=== PATIENT | male | born 1990 | race Caucasian/White ===

== ENCOUNTER → 2020-11-10 07:54 | Outpatient (CLI) | payer BC, SELFPAY ==
--- NOTE | ~2020-11-10 | XR_ITS ---
XR lumbar spine 2-3V DATE: 11/10/2020 08:24 INDICATION: Low back pain TECHNIQUE: Standing AP, lateral and coned lateral lumbosacral views COMPARISON: None FINDINGS: There are 4 functional lumbar vertebra. No fracture or bone destruction is evident. The included lower thoracic and lumbar pedicles are intac t. Lumbar interspaces appear relatively preserved. The sacroiliac joints are intact. IMPRESSION: 4 functional lumbar vertebrae Reviewed, dictated and finalized at location A.
== END ==
PROVIDERS: PCP Nurse Practitioner Family; Visit Provider Nurse Practitioner Family
DX: M54.5 Low back pain (principal)
CPT/HCPCS: 72100

== ENCOUNTER 2024-03-03 06:57 | Emergency (ER) | payer OTHER, SELFPAY ==
--- NOTE | ~2024-03-03 | CT_ITS ---
EXAMINATION: CT abdomen pelvis wo con DATE: 03/03/2024 09:00 INDICATION: Left flank pain. TECHNIQUE: Computed tomography (CT) of the abdomen and pelvis was performed without intravenous contr ast. Automated exposure control and iterative reconstruction technique were employed. The dose-length product was 981.04 mGy-cm. COMPARISON: Abdomen radiographs 03/03/2024 FINDINGS: The visualized portions of the lung bases demonstrate mild atelectasis. No pleural effusion . The heart size is normal. No pericardial effusion. There is diffuse hepatic steatosis. The gallblad odalis, spleen, pancreas, and adrenal glands are normal. There are approximately 8 stones in right kidne y measuring up to 4 mm. There is mild right hydronephrosis and hydroureter. There is a 4 mm stone in the bladder. There are approximately 6 stones in left kidney measuring up to 4 mm. There are no dilat ed loops of bowel. The appendix is normal. There are no pathologically enlarged lymph nodes. There is no free intraperitoneal fluid. There are chronic bilateral L5 pars defects. There is 5 mm anterolist hesis of L5 on S1. There is moderate lumbar spondylosis. IMPRESSION: 1. Mild right hydronephrosis and hydroureter, likely secondary to recent passage of the 4 mm bladder stone. 2. Bilateral nonobstructing kidney stones. Reviewed, dictated and finalized at location A. TY SHERIFF BUILDING GUARD IMPRESSION: 1. Mild right hydronephrosis and hydroureter, likely secondary to recent passag e of the 4 mm bladder stone. 2. Bilateral nonobstructing kidney stones.
--- NOTE | ~2024-03-03 | XR_ITS ---
XR abdomen/kub 1V Ordering provider: Ryan Fraser MD History: . 4 mm right sided kidney stone on outside imaging . Comparison: None. FINDINGS: BOWEL: Nonobstructive bowel gas pattern. ORGANOMEGALY: None. SIGNIFICANT PATHOLOGIC CALCIFICATIONS: Multiple tiny stones are seen in the left kidney lower pole. T iny stones seen in the right kidney midpole. No ureteric stones. OTHER: No free air is seen under the diaphragm. IMPRESSION: NO ACUTE ABDOMINAL FINDINGS. Bilateral kidney stones. Reviewed, dictated and finalized at location A. ING MACHINE OPERATOR HELPER
[2024-03-03 07:11] VITALS: BP 161/88; PULSE 78; RESP 16; TEMP 36.4; O2SAT 98
--- NOTE | 2024-03-03 07:29 | ED.GENADULT ---
HPI - General Adult General Chief complaint: Abdominal Pain Stated complaint: I have a kidney stone Time Seen by Provider: 03/03/24 07:08 History of Present Illness HPI narrative: 34-year-old male with history of ureteral calculi presented to the emergency department for evaluation for pain secondary to a 4 mm calculi in his left ureter. Patient states he began developing pain without Saturday did present to the [place] [facility]. At that time patient had a CT scan showing a 4 mm left-sided ureteral calculi. Patient was discharged home with Flomax, [place], Zofran, Toradol and was instructed to have close follow-up. Patient states on Saturday night his symptoms worsened and his pain was not controlled. Patient did return back to [place] [facility] but since they had no urologist on staff patient states he was discharged to home. Patient states after returning home last night he had worsening symptoms so he presented to our emergency department for evaluation. Patient is supposed to have follow-up with Jackie on Saturday. Related Data Allergies Allergy/AdvReac Type Severity Reaction Status Date / Time No Known Allergies Allergy Verified 03/03/24 07:52 Review of Systems Review of Systems: All systems reviewed & are unremarkable except as noted in HPI and below Exam Narrative: APPEARANCE: uncomfortable appearing HEAD: normocephalic, atraumatic. EYES: PERRLA/EOMI, conjunctivae clear. NOSE: Normal no drainage EARS:TMS clear with good light reflex. THROAT: Pharynx clear, no exudate. NECK: Supple. No adenopathy, no masses. RESPIRATORY: Airway patent, respirations nonlabored. Clear to auscultation bilaterally, no rales, rhonchi, wheezing. CARDIOVASCULAR: Regular rate and rhythm without murmurs rubs or gallops. ABDOMINAL: Soft, nontender, nondistended, normal bowel sounds MUSCULOSKELETAL: Moves all extremities. Strength/ROM intact, No edema, No calf tenderness. NEURO: Alert. Cranial nerves II through XII intact. grossly intact SKIN: Warm, dry. Normal Color Course Course Emergency Course: Patient was discharged home with instructions to have close follow-up with Urology as outpatient. Vital Signs Vital signs: Vital Signs Temperature 97.6 F 03/03/24 07:11 Pulse Rate 78 03/03/24 07:11 Respiratory Rate 16 03/03/24 07:11 Blood Pressure 161/88 H 03/03/24 07:11 Pulse Oximetry 98 03/03/24 07:11 Temperature 98.0 F 03/03/24 08:37 Pulse Rate 76 03/03/24 09:32 Respiratory Rate 16 03/03/24 09:32 Blood Pressure 114/76 03/03/24 09:32 Pulse Oximetry 100 03/03/24 09:32 Medical Decision Making MDM Narrative Medical decision making narrative: 34-year-old male presents emergency department for evaluation for uncontrolled pain. KUB was ordered to visualize the 4 mm ureteral calculi and this was not seen on the x-ray. I discussed the case with Urology and he did not want to take the patient to the OR without an updated CT scan. CT scan does show that the 4 mm left-sided ureteral calculi has now passed into the bladder. On re-evaluation patient states he does feel significantly improved. Patient is resting comfortably. Patient did require multiple doses of IV Dilaudid for pain control. But once the stone passed into the bladder patient's pain was significantly improved. Differential Diagnosis Differential Diagnosis: Ureteral calculi, ureteral spasm, UTI Vital Signs Vital Signs: Vital Signs Temperature 97.6 F 03/03/24 07:11 Pulse Rate 78 03/03/24 07:11 Respiratory Rate 16 03/03/24 07:11 Blood Pressure 161/88 H 03/03/24 07:11 Pulse Oximetry 98 03/03/24 07:11 Temperature 98.0 F 03/03/24 08:37 Pulse Rate 76 03/03/24 09:32 Respiratory Rate 16 03/03/24 09:32 Blood Pressure 114/76 03/03/24 09:32 Pulse Oximetry 100 03/03/24 09:32 Lab Data Lab results reviewed: Yes I reviewed the patient's lab results. 03/03/24 07:30 03/03/24 07:26 Labs: Lab Results 03/03/24 03/03/24 Range/Units 07:26 07:30 WBC 7.2 (4.5-10.0) K/mm3 RBC 4.99 (4.6-6.20) M/mm3 Hgb 14.6 (14.0-18.0) g/dL Hct 43.8 (42.0-52.0) % MCV 87.8 (80-100) fl MCH 29.3 (26-34) pg MCHC 33.3 (32-36) g/dl RDW 12.9 (11.5-14.5) % Plt Count 207 (150-375) k/mm3 MPV 10.8 H (7.4-10.4) fl Immature Gran % (Auto) 0.3 (0-0.5) % Neut % (Auto) 63.9 (45.5-73.1) % Lymph % (Auto) 24.9 (18.3-44.2) % [place] % (Auto) 9.9 H (2.6-8.5) % Eos % (Auto) 0.7 (0-4.4) % Baso % (Auto) 0.3 (0.2-1.2) % Lymph # (Auto) 1.79 (0.9-3.2) K/mm3 [place] # (Auto) 0.7 H (0.1-0.6) K/mm3 Eos # (Auto) 0.1 (0-0.3) K/mm3 Baso # (Auto) 0.0 (0.0-0.1) K/mm3 Abs Immat Gran (auto) 0.02 (0.00-0.031) K/mm3 Absolute Neuts (auto) 4.6 (1.3-6.7) K/mm3 Absolute Nucleated RBC 0.000 (0.0-0.012) K/mm3 Nucleated RBC % 0.0 (0.0-0.2) % Sodium 140 (137-145) mmol/L Potassium 4.5 (3.4-5.0) mmol/L Chloride 102 (98-107) mmol/L Carbon Dioxide 28 (22-30) mmol/L Anion Gap 10 (4-12) mmol/L BUN 13 (9-20) mg/dL Creatinine 1.20 (0.7-1.3) mg/dL Estim Creat Clear Calc 102 ml/min Estimated GFR > 60 (59 - ) Glucose 94 (65-110) mg/dL Calcium 9.0 (8.4-10.2) mg/dL Total Bilirubin 0.7 (0.2-1.3) mg/dL AST 37 (17-59) U/L ALT 59 H (6-50) U/L Alkaline Phosphatase 52 (38-126) U/L Total Protein 8.0 (6.3-8.2) g/dL Albumin 4.5 (3.5-5.1) g/dL Urine Color Yellow (Yellow) Urine Appearance Clear (Clear) Urine pH 6.5 (5.0-9.0) Ur Specific [place] 1.014 (1.001-1.035) Urine Protein Negative (Negative) mg/dL Urine Glucose (UA) Negative (Negative) mg/dL Urine Ketones Negative (Negative) mg/dL Ur Blood (Man) 1+ H (Negative) Urine Nitrate Negative (Negative) Urine Bilirubin Negative (Negative) Urine Urobilinogen 0.2 (<2.0) mg/dL Leukocyte Esterase Rfl Negative (Negative) VAL/UL Urine RBC 11-20 H (0-2) /hpf Urine WBC 0-5 (0-3) /hpf Ur Squamous Epith Cells None seen (Few) /hpf Urine Bacteria None seen /hpf Urine Casts 0-2 Imaging Data Radiologist's impression: Impressions Abdomen X-Ray 03/03/24 08:08 IMPRESSION: NO ACUTE ABDOMINAL FINDINGS. Bilateral kidney stones. Abdomen/Pelvis CT 03/03/24 09:01 IMPRESSION: 1. Mild right hydronephrosis and hydroureter, likely secondary to recent passage of the 4 mm bladder stone. 2. Bilateral nonobstructing kidney stones. Discharge Plan Discharge Clinical Impression: Bladder calculi Patient Disposition: Home, Self-Care Condition: Stable Instructions: Antibiotic Form, Kidney Stones (ED), How to Strain Your Urine (ED), Flank Pain (ED) Additional Instructions: Continue to strain your urine as instructed. Have close follow-up with Urology as scheduled. Home medications for pain control as needed. Follow-up/Referrals: Stone,Aline Ritter, SHIP LO[employer]ER-BC [Primary Care Provider] -
[2024-03-03] MEDS: ONDANSETRON INJ 4 MG/2 ML VIAL IV PUSH (07:33)
[2024-03-03] MEDS: HYDROmorphone HCL INJ (*CRX) 1 MG/ML SYR IV PUSH ×2 (07:33→08:17)
[2024-03-03 07:42] VITALS: BP 132/86; PULSE 72; RESP 16; O2SAT 97
[2024-03-03 07:46] LABS: Basophils Percent Auto 0.3 % (0.2-1.2); Eosinophils Absolute Auto 0.1 K/mm3 (0-0.3); Eosinophils Percent Auto 0.7 % (0-4.4); Hematocrit 43.8 % (42.0-52.0); Hemoglobin 14.6 g/dL (14.0-18.0); Immature Granulocyte Absolute 0.02 K/mm3 (0.00-0.031); Immature Granulocyte Percent A 0.3 % (0-0.5); Lymphocytes Absolute Auto 1.79 K/mm3 (0.9-3.2); Lymphocytes Percent Auto 24.9 % (18.3-44.2); Mean Corpuscular HGB Conc 33.3 g/dl (32-36); Mean Corpuscular Hemoglobin 29.3 pg (26-34); Mean Corpuscular Volume 87.8 fl (80-100); Mean Platelet Volume 10.8 fl (7.4-10.4); Monocytes Absolute Auto 0.7 K/mm3 (0.1-0.6); Monocytes Percent Auto 9.9 % (2.6-8.5); Neutrophils Absolute Auto 4.6 K/mm3 (1.3-6.7); Neutrophils Percent Auto 63.9 % (45.5-73.1); Platelet Count Result 207 k/mm3 (150-375); Red Blood Count 4.99 M/mm3 (4.6-6.20); Red Cell Distribution Width 12.9 % (11.5-14.5); White Blood Count 7.2 K/mm3 (4.5-10.0)
[2024-03-03 07:47] LABS: Add Urine Microscopic? YES; Appearance Urine Clear (Clear); Bacteria Urine None Seen /hpf; Bilirubin Urine Negative (Negative); Blood Urine 1+ (Negative); Color Urine Yellow (Yellow); Glucose Urine UA Negative (Negative); Ketones Urine Negative (Negative); Leukocyte Esterase Ur Negative LEU/UL (Negative); Nitrate Urine Negative (Negative); Non Pathogenic Casts 0-2; Protein Urine Negative (Negative); Specific Grav Ur 1.014 (1.001-1.035); Squamous Epithelial Cell Urine None Seen /hpf (Few); Urobilinogen Urine 0.2 mg/dL (<2.0); WBC Urine 0-5 /hpf (0-3); pH Urine 6.5 (5.0-9.0)
[2024-03-03 07:49] LABS: Alanine Aminotransferase 59 U/L (6-50); Albumin Level 4.5 g/dL (3.5-5.1); Alkaline Phosphatase 52 U/L (38-126); Anion Gap 10 mmol/L (4-12); Aspartate Amino Transferase 37 U/L (17-59); Bilirubin,Total 0.7 mg/dL (0.2-1.3); Blood Urea Nitrogen 13 mg/dL (9-20); Carbon Dioxide 28 mmol/L (22-30); Chloride 102 mmol/L (98-107); Estimated CRCL calculation 102 ml/min; Estimated Glomerular Filt Rate > 60; Glucose 94 mg/dL (65-110); Potassium 4.5 mmol/L (3.4-5.0); Sodium 140 mmol/L (137-145)
--- NOTE | 2024-03-03 08:20 | PC.NURSE ---
Pt pain remains 7.Dr. Fraser informed,order received.
[2024-03-03 08:37] VITALS: BP 144/61; PULSE 77; RESP 18; TEMP 36.7; O2SAT 97
[2024-03-03 09:32] VITALS: BP 114/76; PULSE 76; RESP 16; O2SAT 100
== END 2024-03-03 09:34 | disposition home or self-care (01) ==
PROVIDERS: Emergency Provider Emergency Medicine; PCP Nurse Practitioner Family
DX: N21.0 Calculus in bladder (principal)
CPT/HCPCS: 36415; 74018; 74176; 80053; 81001; 85025; 96374; 96375; 96376; 99284; J1171; J2405

== ENCOUNTER 2024-04-03 10:13 | Outpatient (CLI) | payer OTHER, SELFPAY ==
--- NOTE | ~2024-04-03 | XR_ITS ---
XR abdomen/kub 1V 04/03/2024 10:28 Indication: Recent lithotripsy. Renal stones. Procedure: KUB Comparison: 03/03/2024 Findings: There are multiple left renal stones. Bowel gas pattern nonobstructive. There are pelvic ph leboliths. No acute osseous abnormality. Impression: 1: Left nephrolithiasis. Reviewed, dictated and finalized at location B. RIOR COURT CLERK Impression: 1: Left nephrolithiasis.
== END 2024-04-03 10:14 | disposition home or self-care (01) ==
PROVIDERS: PCP Nurse Practitioner Family; Visit Provider Urology
DX: N20.0 Calculus of kidney (principal)
CPT/HCPCS: 74018

== ENCOUNTER 2024-05-22 07:08 | Outpatient (CLI) | payer OTHER, SELFPAY ==
--- NOTE | ~2024-05-22 | XR_ITS ---
EXAMINATION: XR abdomen/kub 1V DATE: 05/22/2024 07:22 INDICATION: Calcium kidney stone status post lithotripsy on the left. TECHNIQUE: A supine view of the abdomen on 2 radiographs was obtained. COMPARISON: Abdomen radiographs 04/03/2024, CT abdomen and pelvis 03/03/2024 FINDINGS: There are approximately 3 stones in right kidney measuring up to 2 mm. There are two 3 mm s tones in left kidney. There are no dilated loops of bowel. There are phleboliths in the pelvis. IMPRESSION: 1. Small bilateral kidney stones. Reviewed, dictated and finalized at location A. LITIES AND GROUNDS DIRECTOR
--- OUTSIDE RECORDS SUMMARY | 2024-05-22 07:12 | XMS_ITS | Clinical Summary ---
Author Organization [facility] Address [address] [place] [address]. [place], [place] [address] [place] [id number] Care Team Providers Care Computer Discovery Teacher Name Role Phone Aline Nobles [facility] Primary Care Provider [phone] Allergies No known active allergies Medications tamsulosin 0.4 MG CapIndications:N ephrolithiasis Take 1 capsule (0.4 mg total) by mouth daily. 15 capsule 1 Active cefdinir 300 MG Cap capsuleIndicatio ns:Upper respiratory tract infection, unspecified type Take 1 capsule (300 mg total) by mouth 2 (two) times daily. 20 capsule 1 Active AZELASTINE 137 MCG/SPRAY nasal spray INSTILL 2 SPRAYS TWICE DAILY DIRECTED 1 Active fluticasone propionate 50 MCG/ACT nasal spray INSTILL 1 SPRAY INTO EACH NOSTRIL ONCE DAILY. 1 Active amoxicillin 500 MG capsule TAKE 1 CAPSULE BY MOUTH THREE TIMES DAILY UNTIL ALL TAKEN 1 Active tiZANidine 2 MG tablet TAKE 1 TABLET BY MOUTH FOUR TIMES DAILY UNTIL ALL TAKEN 1 Active HYDROcodone-acet aminophen (NORCO) 5-325 MG tabletIndication s:Acute Pain < 7 Day Supply Take 1 tablet by mouth every 6 (six) hours as needed for Pain. Indications: Acute Pain < 7 Day Supply 20 tablet 4 Active ondansetron (ZOFRAN) 4 MG tablet Take 1 tablet (4 mg total) by mouth every 8 (eight) hours as needed for Nausea. 16 tablet 4 Active Active Problems Problem Noted Date Diagnosed Date Nephrolithiasis 05/28/2018 Kidney stone on left side 09/03/2017 BMI 36.0-36.9,adult 05/28/2017 Obesity Resolved Problems Problem Noted Date Diagnosed Date Resolved Date Screening for heart disease 05/28/2017 01/01/2020 Screening for colon cancer 05/28/2017 0 01/01/2020 Screening for diabetes mellitus (DM) 05/28/2017 01/01/2020 Screening for cholesterol level 05/28/2017 01/01/2020 Encounter for preventive health examination 05/17/2017 01/01/2020 Encounters Date Type Department Care Team Description 03/03/2024 12:23 AM [facility] - 03/03/2024 5:37 AM [facility] Emergency [facility] Emergency Room [address] [place] [id number] Sukumar Long MD Back Pain (Right side) Discharge Disposition: Home or Self Care (Routine Discharge) 03/03/2024 Travel 03/01/2024 12:56 AM [facility] - 03/01/2024 3:00 AM [facility] Emergency [facility] Emergency Room [address] [place] [id number] Marv Denise DO Abdominal Pain Discharge Disposition: Home or Self Care (Routine Discharge) 03/01/2024 Travel from Last 3 Months Immunizations Name Administration Dates Next Due Dtap 08/18/1994, 1,1989,05/23,1989 Flucelvax 2 YRS+ (Multi-Dose Vial) 02/03/2019 Fluzone 6 Months+ Quad (0.5 mL Prefilled Syringe) 02/29/2020 Hepatitis A (Generic) 09/01/2007 Hepatitis B 08/24/1999,10/21/1998,07/29/1998 Hib (Generic) 09/02/1990 MMR 08/18/1994,09/02/1990 Meningococcal (Generic) 09/01/2007 PFIZER COVID-19 (ORIGINAL FO RMULATION, PURPLE CAP) mRNA, LNP-S, PF, 30 MCG/0.3 ML DOSE 05/31/2020 Polio Ipv (Generic) 08/18/1994, 1,1989,05/23,1989 Tdap (Boostrix) 11/28/2018 Tdap (Generic) 09/01/2007 Tetanus/Diptheria 11/13/2003 Family History Medical History Relation Comments stomach cancer Father Clotting Disorder Mother Factor V Multiple Sclerosis Mother None Mother Relation Status Comments Father Mother Social History Tobacco Use Types Packs/Day Years Used Date Smoking Tobacco: Never Smokeless Tobacco: Never Alcohol Use Standard Drinks/Week Comments No 0 (1 standard drink = 0.6 oz pur e alcohol) PHQ-2 Answer Date Recorded PHQ-2 Score - If the patient scores above 3, please move on to questions 3-9 0 09/05/2020 Sex and Gender Information Value Date Recorded Sex Assigned at Not on file Legal Sex Male 10:30 AM CDT Gender Identity Not on file Sexual Orientation Not on file Last Filed Vital Signs Vital Sign Reading Time Taken Comments Blood Pressure 112/62 03/03/2024 3:30 AM [facility] Pulse 76 03/03/2024 3:30 AM [facility] Temperature 36.8 ??C (98.2 ??F) 03/03/2024 12:[address] Respiratory Rate 16 03/03/2024 3:30 AM [facility] Oxygen Saturation 94% 03/03/2024 3:30 AM [facility] Inhaled Oxygen Concentration - - Weight 100.2 kg (221 lb) 03/03/2024 12:30 AM [facility] Height 182.9 cm (6') 03/03/2024 12:30 AM [facility] Body Mass Index 29.97 03/03/2024 12:30 AM [facility] Plan of Treatment Health Maintenance Due Date Last Done Comments Hepatitis C 2007 Annual Physical 07/27/2021 07/27/2020, 06/17/2018 COVID-19 Vaccine ( season) 2023 05/31/2020 Influenza Adult (#1) 2024 02/29/2020, 02/04/20 19 DTaP, Tdap and Td Vaccines (8 - Td or Tdap) 11/28/2028 11/28/2018, 09/01/2007, 11/13/2003, Additional history exists Hepatitis B Vaccines Completed 08/24/1999, 10/21/1998, 07/29/1998 Meningococcal Vaccine Aged Out 09/01/2007 No osmar odell eligible based on patient's age to complete this topic HPV Vaccines Aged Out No longer eligi ble based on patient's age to complete this topic Meningococcal B Vaccine Aged Out No l onger eligible based on patient's age to complete this topic Pneumococcal Vaccine: Pediatrics (0 to 5 Years) and At-Risk Patients (6 to 64 Years) Aged Out No longer eligible based on patient's age to complete this topic RSV Immunizations Under 20 Months Aged Out No longer eligible based on patient's age to complete this topic Medical Devices Implanted Type Area Gamer Device Identifier Shelf Expiration Date Model / Serial / Lot Stent Inlay [place] 6 X 28 Implanted:Qty: 1 on 09/13/2017 by Gato Holliday MD at [facility] Left: Ureter [id number] / / [id number] Procedures Procedure Name Priority Date/Time Associated Diagnosis Comments URINALYSIS, AUTO, COMPLETE STAT 03/03/2024 4:[address] ABD+PEL WO CON STAT 03/03/2024 1:0 7 AM [facility] COMPREHENSIVE METABOLIC PANEL STAT 03/03/2024 12:35 AM [facility] CBC W/DIFF AUTOMATED STAT 03/03/2024 12:35 AM [facility] URINALYSIS, AUTO, COMPLETE STAT 03/01/2024 1:[address] ABD+PEL KIDNEY STONE STAT 03/01/2024 1:31 AM [facility] COMPREHENSIVE METABOLIC PANEL STAT 03/01/2024 1:18 AM [facility] CBC W/DIFF AUTOMATED STAT 03/01/2024 1:18 AM [facility] from Last 3 Months Results * (ABNORMAL) URINALYSIS, AUTO, COMPLETE (03/03/2024 4:04 AM [facility]) Only the most recent of2 resultswithin the time period is included. COLOR (U) YELLOW 03/03/2024 4:42 AM [facility] TRANSPARENCY HAZY 03/03/2024 4:42 AM [facility] SPECIFIC GRAVITY (U) 1.025 1.000 - 1.030 03/03/2024 4:42 AM [facility] U PH 6.0 5.0 - 9.0 03/03/2024 4:42 AM [facility] LEUKOCYTES (U) NEGATIVE NEGATIVE 03/03/2024 4:42 AM [facility] NITRITES NEGATIVE NEGATIVE 03/03/2024 4:42 AM [facility] PROTEIN RANDOM (U) NEGATIVE NEGATIVE 03/03/2024 4:42 AM [facility] GLUCOSE (U) NEGATIVE NEGATIVE 03/03/2024 4:42 AM [facility] KETONES MG/DL (U) NEGATIVE NEGATIVE 03/03/2024 4:42 AM [facility] BILIRUBIN (U) NEGATIVE NEGATIVE 03/03/2024 4:42 AM [facility] BLOOD (U) 3+(A) NEGATIVE 03/03/2024 4:42 AM [facility] WBC/HPF 5-10 0 - 5 /HPF 03/03/2024 4:42 AM [facility] RBC/HPF 25-50 0 - 5 /HPF 03/03/2024 4:42 AM [facility] EPI/HPF FEW /HPF 03/03/2024 4:42 AM [facility] BACTERIA (U) MODERATE /HPF 03/03/2024 4:42 AM [facility] URINE SPECIMEN OBTAINED BY CLEAN CATCH PROCEDURE / Unknown 03/03/2024 4:04 AM [facility] us Sukumar Long MD URINE ORDERABLES Final Res ult [facility] [address] [place] [address], [place] [phone] * CT ABD+PEL WO CON (03/03/2024 1:07 AM [facility]) Anatomical Region Laterality Modality Abdomen Computed Tomogra phy 03/03/2024 2:41 AM [facility] Impressions 03/03/2024 2:48 AM [facility] Impression: 1. ??A 4 mm stone is redemonstrated within the distal right ureter, further along the ureter since the prior study. Persistent mild right hydronephrosis and renal edema. 2. ??Additional nonobstructing bilateral renal stones again noted. 3. ??Left L5 pars defect with slight grade 1 anterolisthesis of L5 on S1. Slight retrolisthesis of L4 on L5. Referred By: ?? Interpreted By: Benjamin Joshi MD, 03/03/2024 2:41 AM Narrative 03/03/2024 2:48 AM [facility] [address] [facility] [place] [address] Examination: CT abdomen and pelvis without IV contrast. Clinical Information: Right flank pain. History of kidney stone. Comparison: CT 03/01/2024. Technique: IV contrast: None Oral contrast: None. Technical comments: Standard technique. Dose reduction: This CT exam was performed using one or more of the following dose reduction techniques: Automated exposure control, adjustment of the mA and/or kV according to patient size, and/or use of iterative reconstruction technique. Findings: LOWER CHEST Heart is normal in size. Lung bases are clear. No pleural or pericardial effusions. UPPER ABDOMEN Liver and bile ducts: Normal in size and contour. No biliary dilatation. Gallbladder: No gallbladder wall thickening or pericholecystic fluid. Pancreas: Negative. Spleen: Negative. RETROPERITONEUM Adrenals: Negative. Kidneys: A 4 mm stone is redemonstrated distal right ureter, slightly progressed within the ureter since the prior study. Persistent mild right hydronephrosis and renal edema. Additional nonobstructing bilateral renal stones again noted. Lymph nodes: No lymphadenopathy in the abdomen or pelvis. BOWEL AND PERITONEUM Bowel: Normal in caliber and wall thickness. The appendix is normal. Free air or fluid: None. VASCULATURE The abdominal aorta is normal in caliber. PELVIS No abnormality. BONES/SOFT TISSUES Left L5 pars defect with slight grade 1 anterolisthesis of L5 on S1. Slight retrolisthesis of L4 on L5. No acute osseous abnormalities. Procedure Note Benjamin Joshi MD - 03/03/2024 [facility] [address] [place] [place] [address] Examination: CT abdomen and pelvis without IV contrast. Clinical Information: Right flank pain. History of kidney stone. Comparison: CT 03/01/2024. Technique: IV contrast: None Oral contrast: None. Technical comments: Standard technique. Dose reduction: This CT exam was performed using one or more of thefollowing dose reduction techniques: Automated exposure control,adjustment of the mA and/or kV according to patient size, and/or use ofiterative reconstruction technique. Findings: LOWER CHEST Heart is normal in size. Lung bases are clear. No pleural or pericardialeffusions. UPPER ABDOMEN Liver and bile ducts: Normal in size and contour. No biliary dilatation. Gallbladder: No gallbladder wall thickening or pericholecystic fluid. Pancreas: Negative. Spleen: Negative. RETROPERITONEUM Adrenals: Negative. Kidneys: A 4 mm stone is redemonstrated distal right ureter, slightlyprogressed within the ureter since the prior study. Persistent mild righthydronephrosis and renal edema. Additional nonobstructing bilateral renalstones again noted. Lymph nodes: No lymphadenopathy in the abdomen or pelvis. BOWEL AND PERITONEUM Bowel: Normal in caliber and wall thickness. The appendix is normal. Free air or fluid: None. VASCULATURE The abdominal aorta is normal in caliber. PELVIS No abnormality. BONES/SOFT TISSUES Left L5 pars defect with slight grade 1 anterolisthesis of L5 on S1.Slight retrolisthesis of L4 on L5. No acute osseous abnormalities. Impression: 1. A 4 mm stone is redemonstrated within the distal right ureter, furtheralong the ureter since the prior study. Persistent mild righthydronephrosis and renal edema. 2. Additional nonobstructing bilateral renal stones again noted. 3. Left L5 pars defect with slight grade 1 anterolisthesis of L5 on S1.Slight retrolisthesis of L4 on L5. Referred By: Interpreted By: Benjamin Joshi MD, 03/03/2024 2:41 AM us Sukumar Long MD CT Final Resu lt * (ABNORMAL) COMPREHENSIVE METABOLIC PANEL (03/03/2024 12:35 AM [facility]) Only the most recent of2 resultswithin the time period is included. GLUCOSE 94 70 - 99 MG/DL 03/03/2024 1:02 AM [facility] BUN 14 7 - 18 MG/DL 03/03/2024 1:02 AM [facility] CREATININE S/P/B 1.31(H) 0.7 - 1.3 MG/DL 03/03/2024 1:02 AM [facility] SODIUM S/P/B 145 136 - 145 MMOL/L 03/03/2024 1:02 AM [facility] POTASSIUM S/P/B 3.7 3.5 - 5.1 MMOL/L 03/03/2024 1:02 AM [facility] CHLORIDE S/P/B 105 100 - 108 MMOL/L 03/03/2024 1:02 AM [facility] CO2 30.1 21 - 32 MMOL/L 03/03/2024 1:02 AM [facility] CALCIUM S/P/B 8.8 8.5 - 10.1 MG/DL 03/03/2024 1:02 AM [facility] BILIRUBIN TOTAL S/P/B 0.6 0.2 - 1.2 MG/DL 03/03/2024 1:02 AM [facility] TOTAL PROTEIN S/P/B 7.1 6.4 - 8.2 G/DL 03/03/2024 1:02 AM [facility] ALBUMIN S/P/B 3.6 3.4 - 5.0 G/DL 03/03/2024 1:02 AM [facility] AST 24 15 - 37 U/L 03/03/2024 1:02 AM [facility] ALT 55 16 - 60 U/L 03/03/2024 1:02 AM [facility] ALKALINE PHOSPHATASE S/P/B 56 50 - 136 U/L 03/03/2024 1:02 AM [facility] ANION GAP 9.9 5 - 15 MMOL/L 03/03/2024 1:02 AM [facility] BUN CREATININE RATIO 10.7 6 - 26 03/03/2024 1:02 AM [facility] A/G RATIO 1.0 1.0 - 2.0 RATIO 03/03/2024 1:02 AM [facility] GFR ESTIMATE 73(L) >90 ML/MIN/1.7 3 M2 03/03/2024 1:02 AM [facility] Comment: NOTE: eGFR is not calculated for patients <18 years of age. This is an estimated GFR calculation using the new CKD EPI creatinine equation without race and so does not require a correction factor for race. This estimated GFR should not be used for calculating drug doses. 03/03/2024 12:3 5 AM [facility] us Sukumar Long MD LABORATORY Final Resu lt [facility] [address] [place] [address], [place] [phone] * CBC W/DIFF AUTOMATED (03/03/2024 12:35 AM [facility]) Only the most recent of2 resultswithin the time period is included. WBC 7.93 4.4 - 11.0 x10'3/uL 03/03/2024 12:44 AM [facility] RBC 4.93 4.50 - 5.90 x10'6/uL 03/03/2024 12:44 AM [facility] HGB 14.3 14.0 - 17.5 G/DL 03/03/2024 12:44 AM [facility] HCT 42.9 41.5 - 50.4 % 03/03/2024 12:44 AM [facility] MCV 87.0 80.0 - 96.0 FL 03/03/2024 12:44 AM [facility] MCH 29.0 26.5 - 31.4 PG 03/03/2024 12:44 AM [facility] MCHC 33.3 31.9 - 34.8 G/DL 03/03/2024 12:44 AM [facility] RDW 12.9 12.3 - 14.3 % 03/03/2024 12:44 AM [facility] PLT 194 151 - 353 x10'3/uL 03/03/2024 12:44 AM [facility] MPV 10.2 9.7 - 11.9 FL 03/03/2024 12:44 AM [facility] RBC MORPHOLOGY NORMAL 03/03/2024 12:44 AM [facility] PLT MORPH. NORMAL 03/03/2024 12:44 AM [facility] WBC MORPHOLOGY NORMAL 03/03/2024 12:44 AM [facility] LYMPHOCYTES % 40.9 15.8 - 45.0 % 03/03/2024 12:44 AM [facility] NEUTROPHILS % 43.7 42.1 - 71.9 % 03/03/2024 12:44 AM [facility] MONOCYTES % 11.3 5.7 - 12.5 % 03/03/2024 12:44 AM [facility] EOSINOPHILS 3.3 0.0 - 5.6 % 03/03/2024 12:44 AM [facility] BASOPHILS 0.5 0.0 - 1.3 % 03/03/2024 12:44 AM [facility] ABS. NEUTROPHILS 3.47 1.40 - 6.00 x10'3/uL 03/03/2024 12:44 AM [facility] IMMATURE GRANS % 0.3 0.0 - 0.5 % 03/03/2024 12:44 AM [facility] ABS. LYMPHOCYTES 3.24 0.80 - 4.70 x10'3/uL 03/03/2024 12:44 AM [facility] 03/03/2024 12:3 5 AM [facility] us Sukumar Long MD LABORATORY Final Resu lt Performing Organization Address City/State/[facility] Co de Phone Number [facility] [address] [place] [id number], * CT ABD+PEL KIDNEY STONE (03/01/2024 1:31 AM [facility]) Anatomical Region Laterality Modality Abdomen Computed Tomogra phy 03/01/2024 1:38 AM [facility] Impressions 03/01/2024 1:41 AM [facility] IMPRESSION: 1. ??4 mm right distal ureteral stone with associated mild right hydroureteronephrosis. 2. ??Additional punctate bilateral nephroliths, nonobstructing on the left. PQRS ABDOMINAL: [id number] Referred By: ?? Interpreted By: Gabriele Escudero, 03/01/2024 1:38 AM Narrative 03/01/2024 1:41 AM [facility] [address] [place] [address] HISTORY: Right flank pain COMPARISON: 08/31/2017 TECHNIQUE: Axial images were obtained through the abdomen and pelvis from above the diaphragm through the symphysis pubis without intravenous contrast administration. DOSE OPTIMIZATION: This facility uses dose optimization techniques as appropriate to perform exams, including at least one of the following techniques: 1. Automated exposure control. 2. Adjustment of the mA and/or kV according to patient size (this includes techniques or standardized protocols for targeted exams where dose is matched to the indication/reason for exam, i.e. extremities or head). 3. Use of iterative reconstructive technique. FINDINGS: There is a 4 mm right distal ureteral stone where the ureter crosses the iliac vessels. ??There is mild associated right hydroureteronephrosis. ??Multiple additional punctate right nephroliths. ??Multiple small punctate left nephroliths as well without associated obstruction. ??Renal contours within normal limits. ??Bladder and prostate appear normal. Liver, gallbladder, biliary tracts, spleen, adrenal glands, and pancreas unremarkable insofar as they can be evaluated without contrast. GI tract shows no obstruction or other acute or significant pathology. ??Appendix is normal. No abdominal or pelvic lymph adenopathy. ??Major vascular structures of normal course and caliber. ??No free fluid or free air. ??Abdominal wall and inguinal regions unremarkable. Included lung bases demonstrate typical dependent atelectasis. ??Visible bones reveal no suspicious lytic or blastic lesions. Procedure Note Gabriele Escudero MD - 03/01/2024 [facility] [address] [place] [address] HISTORY: Right flank pain COMPARISON: 08/31/2017 TECHNIQUE: Axial images were obtained through the abdomen and pelvis fromabove the diaphragm through the symphysis pubis without intravenouscontrast administration. DOSE OPTIMIZATION: This facility uses dose optimization techniques asappropriate to perform exams, including at least one of the followingtechniques: 1. Automated exposure control. 2. Adjustment of the mA and/or kV according to patient size (this includestechniques or standardized protocols for targeted exams where dose ismatched to the indication/reason for exam, i.e. extremities or head). 3. Use of iterative reconstructive technique. FINDINGS: There is a 4 mm right distal ureteral stone where the ureter crosses theiliac vessels. There is mild associated right hydroureteronephrosis.Multiple additional punctate right nephroliths. Multiple small punctateleft nephroliths as well without associated obstruction. Renal contourswithin normal limits. Bladder and prostate appear normal. Liver, gallbladder, biliary tracts, spleen, adrenal glands, and pancreasunremarkable insofar as they can be evaluated without contrast. GI tract shows no obstruction or other acute or significant pathology.Appendix is normal. No abdominal or pelvic lymph adenopathy. Major vascular structures ofnormal course and caliber. No free fluid or free air. Abdominal wall andinguinal regions unremarkable. Included lung bases demonstrate typical dependent atelectasis. Visiblebones reveal no suspicious lytic or blastic lesions. IMPRESSION: 1. 4 mm right distal ureteral stone with associated mild righthydroureteronephrosis. 2. Additional punctate bilateral nephroliths, nonobstructing on theleft. PQRS ABDOMINAL: [id number] Referred By: Interpreted By: Gabriele Escudero, 03/01/2024 1:38 AM Marv Denise DO CT Final Res ult from Last [address] [place] [address] [place] [address] Advance Directives * Full Code (Latest Code Status on File) Date Activated Date Inactivated Comments 09/13/2017 10:11 AM 09/13/2017 4:42 PM Care Teams Computer Discovery Teacher Relationship Specialty Start Date End Date Aline Nobles, ROBOTIC WELDING OPERATOR-BC [address] [place] [address] PCP - General NURSE PRACTITIONER 03/01/24
--- OUTSIDE RECORDS SUMMARY | 2024-05-22 07:13 | XMS_ITS | Data Portability ---
Author Organization [place] - [facility], [employer] Address [address] [place] [address] Assessment Encounter Date Assessment Date Assessment LastModified by Organization Details LastModified Time 09/07/2021 09/07/2021 Medication Rodriguez es XR and U/S of R shoulder order given to patient to r/o probable rotator cuff tear Signs and symptoms of when to seek further care reviewed with patient. Patient to follow up with primary care provider or return to clinic for any worsening signs and symptoms. Always present to ER or Urgent Care with any progression of/alarming symptoms, significant changes in symptoms or any concerning or urgent matters. Patient verbalized agreement and understanding of treatment plan. F/U as directed, sooner if needed [email or web address] Not available 09/07/2021 09:23:42 12/17/2022 12/17/2022 Medication Rodriguez es Signs and symptoms of when to seek further care reviewed with patient/caregiver/ family/facility staff. Patient to follow up with primary care provider or return to clinic for any worsening signs and symptoms. Always present to ER or Urgent Care with any progression of/alarming symptoms, significant changes in symptoms or any concerning or urgent matters. Patient/caregiver/ family/facility staff verbalized agreement and understanding of treatment plan. F/U as needed, sooner if needed My total encounter time was 30 minutes which was spent in the activities documented in the note. This includes time spent prior to the visit, performing a medically appropriate examination with evaluation, and after the visit in direct care of the patient (history and exam; ordering prescriptions/labs /imaging/home health/therapy/spe cialists; communicating results to patient and/or other relative individuals; counseling/educati ng patient; documenting clinical information in patient? s chart; coordination of care for the patient). This time does not include time spent in any separately reportable services. [email or web address] Not available 12/17/2022 14:39:28 12/26/2022 12/26/2022 Medication Rodriguez es Benzonatate 100 mg TID PRN Referral to urologist for vasectomy and referral printed and given to patient. Advised to drink plenty of fluids, run a cool-mist humidifier in room at night, gargle salt water for sore throat, and get plenty of rest. Patient should avoid over-exertion and reduce exposure to irritants such as smoke, cold, dry air, and dust. Treatment currently involves symptomatic relief. Patient may take acetaminophen or ibuprofen as directed to reduce fever and body aches. Antihistamine and decongestant usage was discussed and recommendations made. Patient understood these instructions and will follow up in the office in 10 days to 2 weeks if symptoms not improving. Signs and symptoms of when to seek further care reviewed with patient/caregiver/ family/facility staff. Patient to follow up with primary care provider or return to clinic for any worsening signs and symptoms. Always present to ER or Urgent Care with any progression of/alarming symptoms, significant changes in symptoms or any concerning or urgent matters. Patient/caregiver/ family/facility staff verbalized agreement and understanding of treatment plan. F/U 1 year, sooner if needed My total encounter time was 30 minutes which was spent in the activities documented in the note. This includes time spent prior to the visit, performing a medically appropriate examination with evaluation, and after the visit in direct care of the patient (history and exam; ordering prescriptions/labs /imaging/home health/therapy/spe cialists; communicating results to patient and/or other relative individuals; counseling/educati ng patient; documenting clinical information in patient? s chart; coordination of care for the patient). This time does not include time spent in any separately reportable services. [email or web address] Not available 12/26/2022 09:24:10 Plan of Treatment Reminders Order Date Submit Date Provider Last Modified By Organization Details Last Modified Time Details Appointments None recorded. Lab antibiotic sensitivity , isolate 2022 023 [email or web address] [employer], [address] [place] [address], [address], 09:12:48 antibiotic sensitivity , isolate 2022 023 [employer] [address] [facility], [address], [place], [address], 3 09:12:49 antibiotic sensitivity , isolate 2022 023 [email or web address] [employer], [address] [facility], [address], [place], [address], 3 09:12:49 Referral urologist referral - Would like the [place] or [place] office if possible. Whichever is the soonest. 2022 023 CHANCE Fischer MD, [address] [facility] [address], [place], [address], 4 11:18:47 Procedures None recorded. Surgeries None recorded. Imaging XR, shoulder, 2 or more view 2021 022 CHANCE Not available 2 14:28:02 US, shoulder 2021 022 CHANCE Not available 2 15:25:15 Medication Orders metoclopram cony 5 mg tablet 2021 022 [email or web address] [facility] #50975, [address] [place] [address], [id number], 2 09:03:17 famotidine 40 mg tablet [email or web address] [place] [address] [facility] #23500, [address] [place] [address], [id number], 3 08:53:27 erythromyci n 5 mg/gram (0.5 %) eye ointment 2022 023 [email or web address] 9 [facility] #46959, [address] [place] [address], [id number], 3 08:53:34 benzonatate 100 mg capsule 2022 023 [email or web address] [facility] #28562, [address], [place], [id number], 4 20:08:09 Patient TargetsNo targets recorded. Patient Instructions Encounter Date Encounter Id Patient Instructions Last Modified By Organization Details Last Modified Time 12/26/2022 [id number] upper respirator y infection (cold): care instructions [email or web address] Not available 12/26/2022 09:15:49 Reason for Referral Urologist Referral for Chiqui peralta requested Would like the [place] or [place] office if possible. Whichever is the soonest. Referring Physician: Aline Noblse, Internal Medicine, Encounter Date: 12/26/2022 Results Created Date Observation Date Name Description Value Unit Range Abnormal Flag Note LastModifiedBy Organization Detail LastModifiedTime 11/25/19 22 11/24/2021 XR, shoul odalis, 2 or more view No observ ation record ed. [email or web address] [facility], [place], [address], 11/24/2021 15:42:15 11/25/19 22 11/24/2021 US, shoul odalis No observ ation record ed. [email or web address] [facility], [place], [address], 11/24/2021 15:42:16 Result Notes None recorded. Problems Name Problem SNOMED Code Status Onset Date Resolution Date Notes Provider Name and Address Organization Details Recorded Time Obesity 466957540 Active 2020 Crystal L. 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 Stone, CHAIN MORTISER OPERATOR-BC, PMHNP-BC [address] [place], [address], [place] [facility] 3 14:31:33 Factor V Leiden mutation 201762702 Active 2020 DALJIT Fisher-BC, PMHNP-BC [address] [place], [address], [facility] 3 14:31:33 [facility] 10666198 Active 2020 DALJIT Fisher-BC, PMHNP-BC [address] [place], [address], [facility] 3 14:31:33 Problem Notes None recorded. Procedures Surgical History Date Name Laterality Status Provider Name and Address Organization Details Recorded Time 4 vasectomy completed Dodie Calderon [facility] 06/21/2023 12:23:59 2 Cryosurgery Warts/Skin Tags completed Maryjane You [facility] 09/04/2021 09:27:11 2 Cryosurgery Warts/Skin Tags completed DALJIT Fisher-BC, PMHNP-BC [address] [place], [address], [facility] 06/08/2021 13:21:45 cystoscopy completed TOMI ACUÑA [facility] 09/08/2020 12:12:23 barbotage of joint using ultrasound guidance completed DALJIT Fisher-BC, PMHNP-BC [address] [place], [address], [facility] 07/16/2022 15:32:42 Imaging Results Imaging Date Name Status [facility]Modified by [facility] Details LastModified Time 11/24/2021 XR, shoulder, 2 or more view completed [email or web address] [facility], [place], [address], 11/24/2021 15:42:15 11/24/2021 US, shoulder completed [email or web address] [facility], [place], [address], 11/24/2021 15:42:16 Procedure Notes None recorded. Medical Equipment None Reported. Allergies No known drug allergies Medications Name Sig Start Date Stop Date Status Note LastModified by Organization Details LastModified Time celecoxib 200 mg capsule TAKE 1 CAPSULE BY MOUTH EVERY DAY 07/16 completed Not Available Not Available Not Available cyclobenzap rine 10 mg tablet TAKE 1 TABLET BY MOUTH THREE TIMES DAILY NEEDED 07/16 completed Not Available Not Available Not Available amoxicillin 500 mg capsule TAKE 1 CAPSULE BY MOUTH THREE TIMES DAILY UNTIL ALL TAKEN 09/08 completed Not Available Not Available Not Available tizanidine 2 mg tablet TAKE 1 TABLET BY MOUTH FOUR TIMES DAILY UNTIL ALL TAKEN 09/08 completed Not Available Not Available Not Available azithromyci n 250 mg tablet TAKE 2 TABLETS (500 MG) BY ORAL ROUTE ONCE DAILY FOR 1 DAY THEN 1 TABLET (250 MG) BY ORAL ROUTE ONCE DAILY FOR 4 DAYS 09/07 completed Not Available Not Available Not Available meloxicam 15 mg tablet 12/26 completed Not Available Not Available Not Available ondansetron HCl 4 mg tablet TAKE 1 TABLET BY MOUTH TWICE DAILY NEEDED 12/26 completed Not Available Not Available Not Available famotidine 40 mg tablet TAKE 1 TABLET BY MOUTH EVERY DAY BEFORE MEALS 12/26 completed Not Available Not Available Not Available prednisone 20 mg tablet TAKE 2 TABLETS BY MOUTH EVERY DAY FOR 5 DAYS 07/30 completed Not Available Not Available Not Available amoxicillin 500 mg tablet TAKE 1 TABLET BY MOUTH TWICE DAILY 07/30 completed Not Available Not Available Not Available metoclopram cony 5 mg tablet TAKE 1 TABLET BY MOUTH FOUR TIMES DAILY WITH MEALS FOR 14 DAYS 09/07 completed Not Available Not Available Not Available tamsulosin 0.4 mg capsule Take 1 capsule every day by oral route. 09/08 completed Not Available Not Available Not Available benzonatate 100 mg capsule TAKE 1 CAPSULE BY MOUTH THREE TIMES DAILY FOR 7 DAYS NEEDED 07/30 completed Not Available Not Available Not Available cephalexin 500 mg capsule TAKE 1 CAPSULE BY MOUTH EVERY 8 HOURS FOR 14 DAYS 07/16 completed Not Available Not Available Not Available erythromyci n 5 mg/gram (0.5 %) eye ointment APPLY A 1 CENTIMETE R RIBBON IN LOWER CONJUNCTI WILLY SAC IN THE RIGHT EYE THREE TIMES DAILY FOR 1- DAYS 12/26 completed Not Available Not Available Not Available codeine 10 mg-guaifene sin 100 mg/5 mL oral liquid TAKE 10ML BY MOUTH EVERY 4 HOURS NEEDED 07/30 completed Not Available Not Available Not Available azelastine 137 mcg (0.1 %) nasal spray INSTILL 2 SPRAYS TWICE DAILY DIRECTED 09/08 completed Not Available Not Available Not Available levofloxaci n 750 mg tablet TAKE 1 TABLET BY MOUTH EVERY DAY FOR 7 DAYS 07/30 completed Not Available Not Available Not Available albuterol sulfate HFA 90 mcg/actuati on aerosol inhaler INHALE 1 TO 2 PUFFS BY MOUTH EVERY 4 HOURS NEEDED FOR WHEEZING 07/30 completed Not Available Not Available Not Available ondansetron 4 mg disintegrat ing tablet PLACE 1 TABLET ON TOP OF TONGUE AND ALLOW TO DISSOLVE EVERY 6 HOURS NEEDED FOR 30 DAYS 07/16 completed Not Available Not Available Not Available fluticasone propionate 50 mcg/actuati on nasal spray,suspe nsion SHAKE LIQUID AND USE 1 SPRAY IN EACH NOSTRIL TWICE DAILY NEEDED 07/16 completed Not Available Not Available Not Available loratadine 10 mg tablet TAKE 1 TABLET BY MOUTH EVERY DAY 12/26 completed Not Available Not Available Not Available naproxen 500 mg tablet TAKE 1 TABLET BY MOUTH TWICE DAILY 11/24 completed Not Available Not Available Not Available Fish Oil Concentrate 1,000 mg capsule Take 2 capsules every day by oral route for 90 days. 07/30 completed Not Available Not Available Not Available diclofenac 1 % topical gel APPLY 2 GRAMS TOPICALLY TO THE AFFECTED JOINT AREAS FOUR TIMES DAILY 07/16 completed Not Available Not Available Not Available ID NOW COVID-19 Test Kit TEST DIRECTED TODAY 09/07 completed Not Available Not Available Not Available Vitals Date Recorded Body height Body temperature Respiratory rate Oxygen saturation Oxygen saturation in Arterial blood by Pulse oximetry Heart rate Body mass index (BMI) Body weight Systolic blood pressure Diastolic blood pressure Provider Name and Address Organization Details Last Updated DateTime 2 182.88 cm 97.7 [degF] 16 /min 98 % 98 % 84 /min 35.8 kg/m2 690396. 1 g 120 mm[Hg] 80 mm[Hg] Sola Berrios [facility] 2 11:54:10 Date Recorded Body height Body temperature Respiratory rate Heart rate Oxygen saturation Oxygen saturation in Arterial blood by Pulse oximetry Body mass index (BMI) Body weight Systolic blood pressure Diastolic blood pressure Provider Name and Address Organization Details Last Updated DateTime 2 182.88 cm 97.9 [degF] 20 /min 91 /min 97 % 97 % 37.8 kg/m2 506999. 55 g 122 mm[Hg] 82 mm[Hg] Sola Berrios [facility] 2 09:02:59 Date Recorded Body height Body mass index (BMI) Body weight Heart rate Respiratory rate Oxygen saturation Oxygen saturation in Arterial blood by Pulse oximetry Body temperature Provider Name and Address Organization Details Last Updated DateTime 3 185.42 cm 37.3 kg/m2 322042. 49 g 92 /min 18 /min 98 % 98 % 98.2 [degF] Mejia Betito [facility] 3 08:56:26 Social History Question Answer Notes LastModified by Organizat ion Details LastModified Time Tobacco Smoking Status Never Smoker Julian Nobles [facility] 09/05/2020 16:16:48 Do You Have An Advance Directive? Yes [email or web address] Information not available 09/08/2020 What Is Your Level Of Alcohol Consumption? None [email or web address] Information not available 09/05/2020 Are You Currently Sexually Active With Anyone Who Has Traveled (within The Last 12 Weeks) To A Zika-affected Area? No [email or web address] Information not available 09/07/2021 Do You Wear A Helmet When Biking? Yes [email or web address] Information not available 09/07/2021 Are You Blind Or Do You Have Difficulty Seeing? No [email or web address] Information not available 09/07/2021 Is Blood Transfusion Acceptable In An Emergency? Yes Information not available 12/17/2022 What Is Your Level Of Caffeine Consumption? Moderate Information not available 09/08/2020 How Much Tobacco Do You Chew? None [email or web address] Information not available 09/08/2020 What Type Of Asphalt Raker Do You Use? [employer] [email or web address] Information not available 09/07/2021 What Is Your Code Status? Full Code [email or web address] Information not available 12/17/2022 In The 14 Days Before Symptom Onset, Have You Had Close Contact With A Laboratory-confi rmed COVID-19 While That Case Was Ill? No [email or web address] Information not available 09/07/2021 In The 14 Days Before Symptom Onset, Have You Had Close Contact With A Person Who Is Under Investigation For COVID-19 While That Person Was Ill? No [email or web address] Information not available 09/07/2021 Have You Been To An Area Known To Be High Risk For COVID-19? No [email or web address] Information not available 09/07/2021 Are You Currently Employed? Yes [email or web address] Information not available 09/08/2020 Are You Deaf Or Do You Have Serious Difficulty Hearing? No [email or web address] Information not available 09/07/2021 What Type Of Diet Are You Following? REGULAR [email or web address] Information not available 09/08/2020 Which Illicit Or Recreational Drugs Have You Used? None [email or web address] Information not available 09/05/2020 Have You Processed Blood Or Body Fluids From An Ebola Virus Disease Patient Without Appropriate PPE? No [email or web address] Information not available 09/07/2021 Do You Reside In Or Have You Traveled To An Area Where Ebola Virus Transmission Is Active? No [email or web address] Information not available 09/07/2021 Do You Or Have You Ever Used E-cigarettes Or Vape? Never Used Electronic Cigarettes [email or web address] Information not available 09/08/2020 Education Post Graduate [email or web address] Information not available 09/08/2020 What Is The Highest Grade Or Level Of School You Have Completed Or The Highest Degree You Have Received? 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 No [email or web address] Information not available 09/07/2021 What Is The Fluoride Status Of Your Home? Unknown [email or web address] Information not available 09/07/2021 Are There Any Guns Present In Your Home? Yes [email or web address] Information not available 09/08/2020 Which Of Your Hands Is Dominant? Right Information not available 09/07/2021 Hard Of Hearing Or Deaf In One Or Both Ears? No Information not available 09/08/2020 Have You Recently Or Are You Planning To Travel To An Area With Zika Virus? No [email or web address] Information not available 09/07/2021 Single Or Multi-level Home/work? Multi Level Home [email or web address] Information not available 09/08/2020 Do You Use Insect Repellent Routinely? Yes [email or web address] Information not available 09/07/2021 Legally Blind In One Or Both Eyes? No [email or web address] Information not available 09/08/2020 Live Alone Or With Others? With Others [email or web address] Information not available 09/08/2020 Marital Status [email or web address] Informatio n not available 09/08/2020 What Was The Date Of Your Most Recent Tobacco Screening? 12/17/2022 [email or web address] Information not available 12/17/2022 How Many Children Do You Have? 1 [email or web address] Information not available 09/08/2020 Do You Have Any Pets? Yes [email or web address] Information not available 09/07/2021 Do You Use Protection During Sex? No [email or web address] Information not available 09/07/2021 What Is Your Relationship Status? Single [email or web address] Information not available 09/07/2021 Do You Use Your Seat Belt Or Car Seat Routinely? Yes [email or web address] Information not available 09/07/2021 Seat Belts Used Routinely Yes Information not available 09/08/2020 Are You Sexually Active? Yes Information not available 09/07/2021 Smoke Alarm In Home Yes [email or web address] Information not available 09/08/2020 Do You Have Smoke And Carbon Monoxide Detectors In Your Home? Yes [email or web address] Information not available 09/07/2021 Are You Passively Exposed To Smoke? No [email or web address] Information not available 09/08/2020 Do You Or Have You Ever Used Smokeless Tobacco? Never Used Smokeless Tobacco [email or web address] Information not available 09/05/2020 How Much Tobacco Do You Smoke? No [email or web address] Information not available 09/07/2020 Do You Participate In Social Media? Yes [email or web address] Information not available 12/17/2022 General Stress Level Medium [email or web address] Information not available 09/08/2020 Do You Feel Stressed (tense, Restless, Nervous, Or Anxious, Or Unable To Sleep At Night)? HR3186-8 [email or web address] Information not available 09/07/2021 Do You Use Any Illicit Or Recreational Drugs? No [email or web address] Information not available 12/17/2022 Do You Use Sunscreen Routinely? No [email or web address] Information not available 09/07/2021 How Many Years Have You Smoked Tobacco? 0 [email or web address] Information not available 09/08/2020 Have You Recently Traveled Abroad? No fsnxidxfo59 Information not available 09/07/2021 Are You Currently In School? No epnliljkp06 Information not available 09/07/2021 Do You Have Any Dietary Restrictions? No [email or web address] Information not available 12/17/2022 Do You Or Have You Ever Used Any Other Forms Of Tobacco Or Nicotine? No ikhpuipxe41 Information not available 09/07/2021 Sex: Male Functional Status Question Answer Note LastModified by Organizat ion Details LastModified Time Do you have difficulty walking or climbing stairs? No hzcieqnjy41 Information not available 09/07/2021 Do you have transportation difficulties? No [email or web address] Information not available 09/07/2021 Are you able to walk? YESWOREST pjdlvbsu56 Information not available 09/08/2020 Do you have difficulty doing errands alone? No [email or web address] Information not available 09/07/2021 Are you able to care for yourself? Yes [email or web address] Information n ot available 09/08/2020 Do you have difficulty dressing or bathing? No tnfcznfsu55 Information not available 09/07/2021 What is your exercise level? Occasional Information not available 09/08/2020 Mental Status Question Answer Note LastModified by Organization D etails LastModified Time Do you have difficulty concentrating, remembering or making decisions? No [email or web address] Information no t available 09/07/2021 Family History Relationship Description Onset Age of this Age Resolved Age Notes LastModified by Organization Details LastModified Time Mother Multiple sclerosis [email or web address] Not available 2020 16:15:51 Mother Blood coagulation disorder [email or web address] Not available 2020 16:16:02 Father Malignant tumor of stomach [email or web address] Not available 2020 16:16:30 Medical History Condition Response Allergies/Hayfever Y Obesity Y Eye Disease / Disorders Y Hematological Diseases / Disorders Y Immunizations Vaccine Type Date Status Note Provider Elias dan and Address Organization Details Recorded Time COVID-19, mRNA, LNP-S, PF, 30 mcg/0.3 mL dose 05/31/2020 completed Maryjane You null, [facility] 09/07/2020 11:57:04 COVID-19, mRNA, LNP-S, PF, 30 mcg/0.3 mL dose 04/13/2021 completed Sola Berrios null, [facility] 06/08/2021 11:57:34 COVID-19, mRNA, LNP-S, PF, 30 mcg/0.3 mL dose 06/30/2020 completed Maryjane You null, [facility] 06/08/2021 12:02:54 Past Encounters Encounter ID Performer Location Encounter Start Date Encounter Closed Date Diagnosis/Indication Diagnosis SNOMED-CT Code Diagnosis ICD10 Code Diagnosis Note Aline Nobles [facility], [facility] Main Office [address] [place] [address] 09/08/2020 11:57:52 09/08/2020 14:29:18 Factor V Leiden mutation 527050333 D68.51 First degree relatives of affected individual s in families with FVL and a strong history of thrombophi leandra including VTE in individual s <50 years of age; individual s with VTE in an unusual location, or individual s with severe, life-threa tening VTE. Hyperlipidemia 26642706 E78.5 [id number] [facility] Main Office [address] [place] [address] 11/10/2020 14:19:53 11/10/2020 16:18:03 Low back strain 119678732 S39.012A [id number] Aline Nobles [facility], [facility] Main Office [address] [place] [address] 06/08/2021 11:48:50 06/08/2021 13:54:54 Nausea 096501239 R11.0 Multiple s kin tags on neck 627817102 L91.8 Inflamed, itchy, red, painful. Removed. [id number] Aline Nobles [facility], PMHNP-BC Main Office [address] [place] [address] 09/07/2021 08:57:33 09/07/2021 11:59:24 Multiple skin tags on neck 445447439 L91.8 Inflamed, itchy, red, painful. Removed. Shoulder pain 98948722 M 25.511 orders given for further evaluation [id number] Aline Nobles [facility], PMHNP- Main Office [address] [place] [address] 05/18/2022 11:19:06 05/18/2022 11:47:26 Pain in throat 212825480 R07.0 Cough 60766073 R05.9 Headache 93238729 R51.9 Suspected COVID-19 57492 4004 Z20.828 [id number] [facility] in[facility] [address] [place] [address] 12/17/2022 14:30:33 12/17/2022 19:26:37 Bacterial conjunctivitis 638398378 H10.021 [id number] Aline Nobles [facility], HNP- Main Office [address] [place] [address] 12/26/2022 08:48:56 12/26/2022 17:20:55 Bacterial conjunctivitis 238762364 H10.021 Resolved with ABX. Cough 02286882 R05.9 Upper resp iratory infection 36193307 J06.9 Vasectomy requested 1839 21624 Z30.2 Health Concerns Section Related Observation LastModified by Organization Detai ls LastModified Time None Recorded Concern Status LastModified by Organization Details LastModified Time None Recorded Advance Directives Directive Y: Payers Encounter Date Sequence Insurance Name Policy Number Policy Mckeon Covered Member ID Mckeon Member ID Guarantor Name 06/08/2021 1 [place] [id number] John Paul W Thebeau [id number] John Paul Thebeau 09/07/2021 1 [place] [id number] John Paul W Thebeau [id number] John Paul Thebeau 05/18/2022 1 [place] [id number] John Paul W Thebeau [id number] John Paul Thebeau 12/17/2022 1 [place] [id number] John Paul W Thebeau [id number] John Paul Thebeau 12/26/2022 1 [place] [id number] John Paul W Thebeau [id number] John Paul Thebeau Notes Date Note Type Note Provider Name and Address Organization Details Recorded Time 06/08/2021 text/html Skin tag removal d/t pain and irritation. FELIPE Fisher, CHARY [address] [place], [address], [facility] 06/08/2021 13:23:53 09/07/2021 text/html Joint & Soft Tissue PainReported bypatient.Location :right; Shoulder Quality:aching;sha rp;trend is worsening Timing:frequent Severity:variable Alleviating Factors:nothing helps Aggravating Factors:lifting;ca rrying;pushing/pul ling;throwing Associated Symptoms:no weakness; no numbness; no tingling; no swelling; no redness; no warmth; no ecchymosis; no catching/locking; no popping/clicking; no buckling; no grinding; no instability; no radiation down leg; no fever/chills; no weight loss; no change in bowel/bladder habits Skin tag removal d/t pain and irritation. FELIPE Fisher, ABDOULAYE-ALEX [address] [place], [address], [facility] 09/07/2021 10:27:34 12/17/2022 text/html Dry EyeReported bypatient.Location :right Quality:aching;thr obbing;marlo Severity:moderate Duration:constant Modifying Factors:nothing gives relief Associated Symptoms:burning eyes;irritation;fo reign body sensation in eyes;redness FELIPE Fisher, CYNDY [address] [place], [address], [facility] 12/17/2022 14:40:06 12/26/2022 text/html [place] [facility] - ABX used in eye and has resolved.Was recently at [place] and upon return felt horrible for 2-3 days with body aches, fatigue, headache, and lingering cough. Had a couple nights of having waking up sweaty. FELIPE Fisher, CYNDY [address] [place], [address], [facility] 12/26/2022 10:14:16
--- OUTSIDE RECORDS SUMMARY | 2024-05-22 07:13 | XMS_ITS | Referral Summary ---
Author Organization [facility] Address [address] [place] [id number] Care Team Providers Care Manager Sterile Name Role Phone Aline Nobles ACTUARY Primary Care Provider [phone]- [phone] Encounters Date Type Department Care Team Description 03/03/2024 2:08 AM HUMAN RESOURCES FILE CLERK - 03/03/2024 11:59 PM HUMAN RESOURCES FILE CLERK Hospital Encounter [facility] [address] [place] [id number] Discharge Disposition: Discharge to home or self care 03/02/2024 8:41 PM HUMAN RESOURCES FILE CLERK - 03/02/2024 11:59 PM HUMAN RESOURCES FILE CLERK Hospital Encounter [facility] [address] [place] [address] Discharge Disposition: Discharge to home or self care from Last 3 Months Allergies No known active allergies Medications meloxicam (MOBIC) 15 mg tablet Take 1 tablet (15 mg total) by mouth daily with breakfast Take 1 daily with food 30 tablet 3 Active Active Problems Problem Noted Date Diagnosed Date Factor V Leiden mutation 09/08/2020 Hyperlipidemia 09/08/2020 Obesity 09/07/2020 Kidney stone 09/03/2017 Social History Tobacco Use Types Packs/Day Years Used Date Smoking Tobacco: Never Tobacco Cessation:Counseling Given: Not Answered Sex and Gender Information Value Date Recorded Sex Assigned at Not on file Legal Sex Male 4:28 PM CDT Gender Identity Not on file Sexual Orientation Not on file Last Filed Vital Signs Vital Sign Reading Time Taken Comments Blood Pressure - - Pulse - - Temperature - - Respiratory Rate - - Oxygen Saturation - - Inhaled Oxygen Concentration - - Weight 113.4 kg (250 lb) 07/16/2022 10:12 AM CDT Height 182.9 cm (6') 07/16/2022 10:12 AM CDT Body Mass Index 33.91 07/16/2022 10:12 AM CDT Plan of Treatment Not on file Procedures Procedure Name Priority Date/Time Associated Diagnosis Comments CT BODY OUTSIDE REFERENCE Routine 03/03/2024 2:08 AM HUMAN RESOURCES FILE CLERK CT BODY OUTSIDE REFERENCE Routine 03/02/2024 8:41 PM HUMAN RESOURCES FILE CLERK from Last 3 Months Results * CT Body Outside Reference (03/03/2024 2:08 AM HUMAN RESOURCES FILE CLERK) Impressions [facility] - 03/03/2024 2:08 AM HUMAN RESOURCES FILE CLERK These images are for Reference purposes only and have not been reviewed by [facility]. ??There will be no report generated by a [facility] Radiologist. Narrative [facility] - 03/03/2024 2:08 AM HUMAN RESOURCES FILE CLERK EXAMINATION: ??Images For Reference Purposes Only Miranda Kenney ACTUARY IMG CT PROCEDURES Final Res ult Performing Organization Address [facility] Co de Phone Number [facility] * CT Body Outside Reference (03/02/2024 8:41 PM HUMAN RESOURCES FILE CLERK) Impressions [facility] - 03/02/2024 8:41 PM HUMAN RESOURCES FILE CLERK These images are for Reference purposes only and have not been reviewed by [facility]. ??There will be no report generated by a [facility] Radiologist. Narrative [facility] - 03/02/2024 8:41 PM HUMAN RESOURCES FILE CLERK EXAMINATION: ??Images For Reference Purposes Only Miranda Kenney ACTUARY IMG CT PROCEDURES Final Res ult Performing Organization Address [facility]/State/ZIP Co de Phone Number [facility] from Last 3 Months Insurance [employer] SIG [id number] [facility] Care Teams Manager Sterile Relationship Specialty Start Date End Date Aline Nobles NP [address] [place] [address] PCP - General Nurse Practitioner 12/19/21
--- OUTSIDE RECORDS SUMMARY | 2024-05-22 07:13 | XMS_ITS | Clinical Summary ---
Author Organization [facility] Address [address] [place] [address] Care Team Providers Care Molder Shoulder Pad Name Role Phone Aline Nobles LOGGING EQUIPMENT OPERATOR Primary Care Provider [phone]- [phone] Allergies No known active allergies Medications meloxicam (MOBIC) 15 mg tablet Take 1 tablet (15 mg total) by mouth daily with breakfast Take 1 daily with food 30 tablet 3 Active Active Problems Problem Noted Date Diagnosed Date Factor V Leiden mutation 09/08/2020 Hyperlipidemia 09/08/2020 Obesity 09/07/2020 Kidney stone 09/03/2017 Encounters Date Type Department Care Team Description 03/03/2024 2:08 AM SILK HANGER - 03/03/2024 11:59 PM SILK HANGER Hospital Encounter [facility]) [address] [place] [address] Discharge Disposition: Discharge to home or self care 03/02/2024 8:41 PM SILK HANGER - 03/02/2024 11:59 PM SILK HANGER Hospital Encounter [facility] [address] [place] [address] Discharge Disposition: Discharge to home or self care from Last 3 Months Social History Tobacco Use Types Packs/Day Years Used Date Smoking Tobacco: Never Tobacco Cessation:Counseling Given: Not Answered Sex and Gender Information Value Date Recorded Sex Assigned at Not on file Legal Sex Male 4:28 PM CDT Gender Identity Not on file Sexual Orientation Not on file Obstetrics History Last Filed Vital Signs Vital Sign Reading Time Taken Comments Blood Pressure - - Pulse - - Temperature - - Respiratory Rate - - Oxygen Saturation - - Inhaled Oxygen Concentration - - Weight 113.4 kg (250 lb) 07/16/2022 10:12 AM CDT Height 182.9 cm (6') 07/16/2022 10:12 AM CDT Body Mass Index 33.91 07/16/2022 10:12 AM CDT Plan of Treatment Health Maintenance Due Date Last Done Comments Depression Screening 1989 Hepatitis C Screening 1989 Varicella Vaccines (1 of 2 - 13+ 2-dose series) 2002 Regular Well Visit/Exam 18-64 2007 Covid-19 Vaccine ( season) 2023 04/13/2021, 06/30/2020, 05/31/2020 Influenza Vaccine (#1) 2023 , 02/29/2020, 02/03/2019 DTaP/Tdap/Td Vaccine (8 - Td or Tdap) 11/28/2028 11/28/2018, 09/01/2007, 11/13/2003, Additional history exists HPV Vaccines Aged Out No longer eligi ble based on patient's age to complete this topic Pneumococcal vaccine <65 Aged Out No longer eligible based on patient's age to complete this topic Procedures Procedure Name Priority Date/Time Associated Diagnosis Comments CT BODY OUTSIDE REFERENCE Routine 03/03/2024 2:[address] BODY OUTSIDE REFERENCE Routine 03/02/2024 8:41 PM SILK HANGER from Last 3 Months Results * CT Body Outside Reference (03/03/2024 2:08 AM SILK HANGER) Impressions [facility] - 03/03/2024 2:08 AM SILK HANGER These images are for Reference purposes only and have not been reviewed by [facility] Radiology. ??There will be no report generated by a [facility] Radiologist. Narrative [facility] - 03/03/2024 2:08 AM SILK HANGER EXAMINATION: ??Images For Reference Purposes Only us Miranda Kenney LOGGING EQUIPMENT OPERATOR IMG CT PROCEDURES Final Res ult [facility] * CT Body Outside Reference (03/02/2024 8:41 PM SILK HANGER) Impressions [facility] - 03/02/2024 8:41 PM SILK HANGER These images are for Reference purposes only and have not been reviewed by [facility] Radiology. ??There will be no report generated by a [facility] Radiologist. Narrative [facility] - 03/02/2024 8:41 PM SILK HANGER EXAMINATION: ??Images For Reference Purposes Only us Miranda Kenney NP IMG CT PROCEDURES Final Res ult [facility] from Last 3 Months Insurance [employer] SIG [id number] [facility] Care Teams Molder Shoulder Pad Relationship Specialty Start Date End Date Aline Nobles NP [address] [place] [address] PCP - General Nurse Practitioner 12/19/21
== END 2024-05-22 07:09 | disposition home or self-care (01) ==
PROVIDERS: PCP Nurse Practitioner Family; Visit Provider Urology
DX: N20.0 Calculus of kidney (principal)
CPT/HCPCS: 74018